=== PATIENT | female | born 1955 | race Two or more races ===

== ENCOUNTER 2025-08-09 00:11 | Inpatient (IN) | payer MEDICARE, BC ==
[~2025-08-09] VITALS: Ht 167.6 cm; Wt 81.8 kg
--- NOTE | 2025-08-09 00:26 | ECG ---
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
[2025-08-09 00:49] LABS: Hematocrit 45.8 % (36.0-46.0); Hemoglobin 15.8 g/dL (12.2-16.2); Mean Corpuscular Hemoglobin 29.7 pg (28.0-32.0); Mean Corpuscular Volume 86.1 fL (80.0-100.0); Nucleated Red Blood Cells % 0.1 %
--- NOTE | 2025-08-09 00:53 | DVH ---
CHEST RADIOGRAPH Indication: Palpitations Technique: 1 view Comparison: None FINDINGS: Lines and Tubes: External leads. Lungs/Pleura: No focal consolidation, pleural effusion or pneumothorax. Cardiomediastinum: Unremarkable. Other: No acute osseous abnormality. IMPRESSION: 1. No acute cardiopulmonary abnormality.
[2025-08-09 01:04] LABS: Alanine Aminotransferase 39 U/L (7-40); Albumin 4.6 g/dL (3.2-4.8); Alkaline Phosphatase 106 U/L (46-116); Anion Gap 16 (5-15); BUN/Creatinine Ratio 13.3 (10.0-20.0); Blood Urea Nitrogen 12 mg/dL (9-23); Carbon Dioxide 22 mmol/L (20-31); Magnesium 2.5 mg/dL (1.6-2.6); Potassium 3.9 mmol/L (3.5-5.1); Total Protein 7.6 g/dL (5.7-8.2)
[2025-08-09 01:05] LABS: Bilirubin, Total 0.4 mg/dL (0.2-1.0)
[2025-08-09] MEDS: SODIUM CHLORIDE 0.9% 1,000 ML IV ONE (01:05)
[2025-08-09 01:06] LABS: Calcium 10.4 mg/dL (8.7-10.4); Chloride 107 mmol/L (98-107); Glucose 145 mg/dL (74-106); Sodium 145 mmol/L (136-145)
[2025-08-09] MEDS: dilTIAZem 25 MG/5 ML VIAL IV ONE (01:06)
--- NOTE | 2025-08-09 01:08 | ED.PDOC ---
HPI Comments 70-year-old female with dyslipidemia presented to the ER with a chief complaint of palpitations and chest pain for the past 2 hours, patient went to bed and started to experience palpitations, her heart was racing, she also felt pressure type chest pain, left-sided, nonradiating, nonexertional, she took a baby aspirin, associated with shortness of breaths, no nausea or diaphoresis. Patient denies any fevers/chills/abdominal or urinary symptoms. She says that she had an echocardiogram 2 years back which was normal. Past medical history: Dyslipidemia Home medications: Atorvastatin Patient seen and examined. EKG completed, shows AFib with RVR, IV diltiazem push given. Rate controlled with diltiazem push, still regular. Attestation note: Dr. Maravilla: I was the supervising attending for this ED encounter. Please see the resident's notes. I was available for questions and consultations. MDM: MDM: patient presented with the above HPI.--palpitation----workup was ini tiated. patient was found with the above mentioned diagnosis. the following medications were ordered: please refer to order lists of meds and tests obtained by myself Dr. Maravilla. Patient ED course and VS have been stabilized. Patient has been reassessed in the ED and remained in a stable condition. Pertinent incidental findings were discussed with the patient and/or family. Patient/family voices understanding and is agreeable with plan. Patient has been observed in the ED adequate length of time to insure improvement/stability. Escalation of care considered: Consideration of escalation to observation or admission Patient was given diltiazem bolus which led to rate control of atrial fibrillation. Patient was ADMITTED to the medicine team for further evaluation and treatment of their presentation. All the reports of any imaging studies that were ordered by myself were reviewed by myself. Chief Complaint: Palpitations Time Seen by MD: 00:15 Reviewed Notes: Nurses Notes, Allergies Allergies: Coded Allergies: Penicillins (Verified Allergy, Unknown, 08/09/25) Sulfa Antibiotics (Verified Allergy, Unknown, 08/09/25) Information Source: Patient Mode of Arrival: Ambulatory Past Medical History Past Medical History (Other): Dyslipidemia Constitutional: denies: chills, diaphoresis, fatigue, fever, malaise, sweats, weakness, others EENTM: denies: blurred vision, double vision, ear bleeding, ear discharge, ear drainage, ear pain, ear ringing, eye pain, eye redness, hearing loss, mouth pain, mouth swelling, nasal discharge, nose bleeding, nose congestion, nose pain, photophobia, tearing, throat pain, throat swelling, voice changes, others Respiratory: reports: SOB at rest Cardiovascular: reports: chest pain, lightheadedness, palpitations Gastrointestinal: denies: abdomen distended, abdominal pain, blood streaked bowels, constipated, diarrhea, dysphagia, difficulty swallowing, hematemesis, melena, nausea, poor appetite, poor fluid intake, rectal bleeding, rectal pain, vomiting, others Genitourinary: denies: abnormal vagina bleeding, burning, dyspareunia, dysuria, flank pain, frequency, hematuria, incontinence, pain, , vagina discharge, urgency, others Neurological: denies: dizziness, fainting, headache, left sided numbness, left sided weakness, numbness, paresthesia, pre-existing deficit, right sided numbness, right sided weakness, seizure, speech problems, tingling, tremors, weakness, others Musculoskeletal: denies: back pain, gout, joint pain, joint swelling, muscle pain, muscle stiffness, neck pain, others Integumetry: denies: bruises, change in color, change in hair/nails, dryness, laceration, lesions, lumps, rash, wounds, others Allergic/Immunocompromised: denies: Difficulty Healing, Frequent Infections, Hives, Itching, others Hematologic/Lymphatic: denies: anemia, blood clots, easy bleeding, easy bruising, swollen glands, others Endocrine: denies: excessive hunger, excessive sweating, excessive thirst, excessive urination, flushing, intolerance to cold, intolerance to heat, unexplained weight gain, unexplained weight loss, others Psychiatric: denies: anxiety, bipolar disorder, depression, hopeless, panic disorder, schizophrenia, sleepless, suicidal, others Physical Exam General Appearance: Mild Distress HEENT: NOT DONE Neck: NOT DONE Respiratory: No Accessory Muscle Use, No Respiratory Distress, Normal Breath Sounds Cardiovascular: Irregular, No Edema, Tachycardia Breast Exam: Deferred Gastrointestinal: Non Tender, Normal Bowel Sounds Genitalia: Deferred Pelvic: Deferred Rectal: Deferred Extremities: Non-tender, No pedal edema Neurologic: NOT DONE Cerebellar Function: NOT DONE Reflexes: NOT DONE Skin: Dry Lymphatic: NOT DONE EKG EKG : Comments Shows new onset AFib with RVR, heart rate 150s and irregular Was a procedure done? Was a procedure done?: No CP Differential Dx Differential Diagnosis: A-fib, A-Flutter, Angina, Anxiety / Panic Attack, Digoxin Toxicity, Electrolyte Disorder, Heart Failure, Hyperthyroidism, Hyperventilation, Hypoxia, MAT, CO, PAC's, Pacemaker Malfunction, PSVT, Pulmonary Embolus, PVC's, Renal Failure, Sinus Tachycardia, Torsades De Pointes, Ventricular Dysrhythmia, V-Fib, V-Tach, WPW Differential Diagnosis: CHF, HTN Essential X-Ray, Labs, Meds, VS Vital Signs Date Time Temp Pulse Resp B/P (MAP) Pulse Ox O2 Delivery O2 Flow Rate FiO2 08/09/25 02:00 98.0 81 18 159/83 (108) 97 98.0 08/09/25 01:18 74 08/09/25 00:39 Room Air* 0 21 08/09/25 00:39 98.0 146 15 149/85 (106) 97 98.0 08/09/25 00:25 154 08/09/25 00:21 136 08/09/25 00:17 97.5 117 20 138/105 97 97.5 Lab Test 08/09/25 01:30 08/09/25 00:27 Range/Units Phosphorus Level 2.8 2.4-5.1 mg/dL Troponin I High Sensitivity 14 9 </=34 ng/L C-Reactive Protein High Sensitivity 0.35 <1.0 mg/dL Triglycerides Level 133 < 150 mg/dL Cholesterol Level 166 < 200 mg/dL LDL Cholesterol 120 H < 100 mg/dL HDL Cholesterol 41 40-59 mg/dL Lipase 79 H 12-53 U/L Thyroid Stimulating Hormone (TSH) 3.72 0.55-4.78 uIU/mL White Blood Count 9.0 4.4-10.8 10^3/uL Red Blood Count 5.32 H 4.0-5.20 10^6/uL Hemoglobin 15.8 12.2-16.2 g/dL Hematocrit 45.8 36.0-46.0 % Mean Corpuscular Volume 86.1 80.0-100.0 fL Mean Corpuscular Hemoglobin 29.7 28.0-32.0 pg Mean Corpuscular Hemoglobin Concent 34.5 32.0-36.0 g/dL Red Cell Distribution Width 13.3 11.8-14.3 % Platelet Count 222 140-450 10^3/uL Mean Platelet Volume 8.6 6.9-10.8 fL Neutrophils (%) (Auto) 68.8 37.0-80.0 % Lymphocytes (%) (Auto) 18.2 10.0-50.0 % Monocytes (%) (Auto) 10.4 0.0-12.0 % Eosinophils (%) (Auto) 2.2 0.0-7.0 % Basophils (%) (Auto) 0.4 0.0-2.0 % Neutrophils # (Auto) 6.2 1.6-8.6 10 ^3/uL Lymphocytes # (Auto) 1.6 0.4-5.4 10 ^3/uL Monocytes # (Auto) 0.9 0-1.3 10 ^3/uL Eosinophils # (Auto) 0.2 0-0.8 10 ^3/uL Basophils # (Auto) 0 0-0.2 10 ^3/uL Nucleated Red Blood Cells 0.1 % Prothrombin Time 10.2 9.3-11.8 sec Prothrombin Time INR 0.96 0.9-1.15 Activated Partial Thromboplast Time 25.6 24.5-34.5 SEC D-Dimer, Quantitative 0.33 0.0-0.49 mg/L FEU Sodium Level 145 136-145 mmol/L Potassium Level 3.9 3.5-5.1 mmol/L Chloride Level 107 98-107 mmol/L Carbon Dioxide Level 22 20-31 mmol/L Anion Gap 16 H 5-15 Blood Urea Nitrogen 12 9-23 mg/dL Creatinine 0.90 0.550-1.02 mg/dL Glomerular Filtration Rate Calc 70 >90 mL/min BUN/Creatinine Ratio 13.3 10.0-20.0 Serum Glucose 145 H 74-106 mg/dL Hemoglobin A1c 6.1 H <5.7 % A1C Calcium Level 10.4 8.7-10.4 mg/dL Magnesium Level 2.5 1.6-2.6 mg/dL Total Bilirubin 0.4 0.2-1.0 mg/dL Aspartate Amino Transferase (AST) 28 13-40 U/L Alanine Aminotransferase (ALT) 39 7-40 U/L Alkaline Phosphatase 106 46-116 U/L B-Type Natriuretic Peptide 64.98 0-100 pg/mL Total Protein 7.6 5.7-8.2 g/dL Albumin 4.6 3.2-4.8 g/dL Vitamin B12 Level 849 211-911 pg/mL Vitamin D 25-Hydroxy Pending Current Medications Medications (Trade) Dose Ordered Sig/Sharron Route Start Time Stop Time Status Last Admin Sodium Chloride 1,000 ml @ 1,000 mls/hr Q1H ONCE IV 08/09/25 00:45 08/09/25 01:44 DC 08/09/25 01:05 Diltiazem HCl (Cardizem Injection) 20 mg ONCE ONCE IV 08/09/25 00:45 08/09/25 00:46 DC 08/09/25 01:06 X-Ray, Labs, Meds, VS Comment Chest x-ray shows No acute cardiopulmonary abnormality. CBC unremarkable CMP unremarkable Troponin WNL BNP 64 Images Reviewed?: Images reviewed and evaluated by me Time of 1ST Reevaluation: 01:00 Reevaluation 1ST: Improved Consultation: PCP, Cardiology Patient Education/Counseling: Diagnosis, Treatment Family Education/Counseling: Diagnosis, Treatment SEPSIS Sepsis Screen Date sepsis recognized/suspect: Aug 09, 2025 Time Sepsis recognized/suspect: 0019 Recent Procedure: No On Antibiotic Therapy: No Respiratory Rate >20: No Heart Rate >90: No Temp<36 C (96.8 F) or >38.3 C: No SBP <90 or MAP <65 mmHG: No New Acute Mental Status Change: No Is the patient on CPAP, BIPAP,: No Physician Orders Chest Xray 1 View (08/09/25 00:21) Vital Signs Date Time Temp Pulse Resp B/P (MAP) Pulse Ox O2 Delivery O2 Flow Rate FiO2 08/09/25 02:00 98.0 81 18 159/83 (108) 97 98.0 08/09/25 01:18 74 08/09/25 00:39 Room Air* 0 21 08/09/25 00:39 98.0 146 15 149/85 (106) 97 98.0 08/09/25 00:25 154 08/09/25 00:21 136 08/09/25 00:17 97.5 117 20 138/105 97 97.5 Laboratory Tests Test 08/09/25 00:27 White Blood Count 9.0 10^3/uL (4.4-10.8) Medications Medications Dose Ordered Sig/Sharron Route Start Time Stop Time Status Last Admin Dose Admin Diltiazem HCl 20 mg ONCE ONCE IV 08/09/25 00:45 08/09/25 00:46 DC 08/09/25 01:06 Sodium Chloride 1,000 ml @ 1,000 mls/hr Q1H ONCE IV 08/09/25 00:45 08/09/25 01:44 DC 08/09/25 01:05 Departure 1 Departure Time of Disposition: 01:16 Impression: Primary Impression: Atrial fibrillation with RVR Disposition: ADMITTED INPATIENT Admit to: Tele Condition: Guarded Discharged With: Self Critical Care Note Critical Care Time?: Yes (45 min-critical care time only) Stability Stability form required: No Heart Score Heart Score: Heart Score Response (Comments) Value History Moderate Suspicious 1 EKG Normal 0 Age >65 2 Risk Factors 1 or 2 risk factors 1 Troponin Normal limit 0 Total 4 DAVID MCKEON RESIDENT Aug 09, 2025 01:08 EN MARAVILLA DO Aug 09, 2025 01:16
--- NOTE | 2025-08-09 01:53 | DVHHPRES ---
History of Present Illness Resident Creating Document: NANO PEPPER RESIDENT History of Present Illness This is a 70-year-old female with past medical history of hyperlipidemia, hypertension, presented to the ER with chief complain of chest pain, irregular pulse. Patient reported she was relaxed when she suddenly started feeling irregular pulse in her neck and feeling of her heart racing. She reports chest and pain, which is described as pressure-like, 3/10, associated with palpitation and shortness of breaths. She reports recent travel from [facility], visiting son. Denies history of fever, chills, dizziness, nausea. PMHx: Hyperlipidemia, hypertension PSHx: No surgical history Family history: Stroke in mother Social history: Occasional alcohol use. Denies smoking, drug use. Lives in home alone, full code, next to kin is son Home medication: Atorvastatin, newly prescribed lisinopril Allergic history: Penicillin, sulfa drugs Patient was examined at bedside today. Patient received diltiazem in ER and is now rate controlled, spontaneously reverted to sinus rhythm. Vitals show tachycardia, patient is admitted for further evaluation and management Review of Systems Review of Systems ROS: Constitutional: Denies weight loss, fever and chills. HEENT: Denies changes in vision and hearing. Respiratory: Shortness of breaths Cardiovascular: Chest pain, palpitation, GI: Denies abdominal pain, nausea, vomiting and diarrhea. : Denies dysuria and urinary frequency. Musculoskeletal: Denies myalgias and joint pain Skin: Denies rash and pruritus. Neurological: Denies dizziness, headache, vision or hearing problems Allergies: Coded Allergies: Penicillins (Verified Allergy, Unknown, 08/09/25) Sulfa Antibiotics (Verified Allergy, Unknown, 08/09/25) Exam Vital Signs Vital Signs Date Time Temp Pulse Resp B/P (MAP) Pulse Ox O2 Delivery O2 Flow Rate FiO2 08/09/25 01:18 74 08/09/25 00:39 Room Air* 0 21 08/09/25 00:39 98.0 15 149/85 (106) 97 98.0 Exam General: Patient alert and oriented in person, place and time. Patient following commands. HEENT: Normocephalic, atraumatic, moist mucous membranes Respiratory/pulmonary: Clear lungs bilaterally, vesicular murmurs present in almost all lung jacobs, no associated crackles or wheezes. Cardiovascular: Irregularly irregular heart sounds Abdomen: Abdomen nondistended, there is no pain to palpation in any of the abdominal quadrants, no palpable masses. Extremities: There is no peripheral edema present at the lower extremities. Peripheral Pulses: 3+ Radial (R). 3+ Radial (L). 3+ Dorsalis pedis (R). 3+ Dorsalis pedis(L) Skin: No rashes or pruritus, there is no sacral edema present at this time. Neurological: Intact cranial nerves with no focal neurologic deficits Labs/Xrays Labs Test 08/09/25 01:30 08/09/25 00:27 Range/Units White Blood Count 9.0 4.4-10.8 10^3/uL Red Blood Count 5.32 H 4.0-5.20 10^6/uL Hemoglobin 15.8 12.2-16.2 g/dL Hematocrit 45.8 36.0-46.0 % Mean Corpuscular Volume 86.1 80.0-100.0 fL Mean Corpuscular Hemoglobin 29.7 28.0-32.0 pg Mean Corpuscular Hemoglobin Concent 34.5 32.0-36.0 g/dL Red Cell Distribution Width 13.3 11.8-14.3 % Platelet Count 222 140-450 10^3/uL Mean Platelet Volume 8.6 6.9-10.8 fL Neutrophils (%) (Auto) 68.8 37.0-80.0 % Lymphocytes (%) (Auto) 18.2 10.0-50.0 % Monocytes (%) (Auto) 10.4 0.0-12.0 % Eosinophils (%) (Auto) 2.2 0.0-7.0 % Basophils (%) (Auto) 0.4 0.0-2.0 % Neutrophils # (Auto) 6.2 1.6-8.6 10 ^3/uL Lymphocytes # (Auto) 1.6 0.4-5.4 10 ^3/uL Monocytes # (Auto) 0.9 0-1.3 10 ^3/uL Eosinophils # (Auto) 0.2 0-0.8 10 ^3/uL Basophils # (Auto) 0 0-0.2 10 ^3/uL Nucleated Red Blood Cells 0.1 % Sodium Level 145 136-145 mmol/L Potassium Level 3.9 3.5-5.1 mmol/L Chloride Level 107 98-107 mmol/L Carbon Dioxide Level 22 20-31 mmol/L Anion Gap 16 H 5-15 Blood Urea Nitrogen 12 9-23 mg/dL Creatinine 0.90 0.550-1.02 mg/dL Glomerular Filtration Rate Calc 70 >90 mL/min BUN/Creatinine Ratio 13.3 10.0-20.0 Serum Glucose 145 H 74-106 mg/dL Calcium Level 10.4 8.7-10.4 mg/dL Magnesium Level 2.5 1.6-2.6 mg/dL Total Bilirubin 0.4 0.2-1.0 mg/dL Aspartate Amino Transferase (AST) 28 13-40 U/L Alanine Aminotransferase (ALT) 39 7-40 U/L Alkaline Phosphatase 106 46-116 U/L B-Type Natriuretic Peptide 64.98 0-100 pg/mL Total Protein 7.6 5.7-8.2 g/dL Albumin 4.6 3.2-4.8 g/dL SEPSIS Sepsis Screen Date sepsis recognized/suspect: Aug 09, 2025 Time Sepsis recognized/suspect: 38 Recent Procedure: No On Antibiotic Therapy: No Respiratory Rate >20: No Heart Rate >90: Yes Temp<36 C (96.8 F) or >38.3 C: No SBP <90 or MAP <65 mmHG: No New Acute Mental Status Change: No Is the patient on CPAP, BIPAP,: No Physician Orders Chest Xray 1 View (08/09/25 00:21) Troponin-I Hs (08/09/25 00:32) Troponin-I Hs (08/09/25 03:32) Vital Signs Date Time Temp Pulse Resp B/P (MAP) Pulse Ox O2 Delivery O2 Flow Rate FiO2 08/09/25 01:18 74 08/09/25 00:39 Room Air* 0 21 08/09/25 00:39 98.0 146 15 149/85 (106) 97 98.0 08/09/25 00:25 154 08/09/25 00:21 136 08/09/25 00:17 97.5 117 20 138/105 97 97.5 Laboratory Tests Test 08/09/25 00:27 White Blood Count 9.0 10^3/uL (4.4-10.8) Medications Medications Dose Ordered Sig/Sharron Route Start Time Stop Time Status Last Admin Dose Admin Diltiazem HCl 20 mg ONCE ONCE IV 08/09/25 00:45 08/09/25 00:46 DC 08/09/25 01:06 20 MG Sodium Chloride 1,000 ml @ 1,000 mls/hr Q1H ONCE IV 08/09/25 00:45 08/09/25 01:44 DC 08/09/25 01:05 1,000 MLS/HR Assessment/Plan Assessment/Plan New onset Atrial fibrillation with RVR CHADS-VASc 3, HAS BLED 2 Rate controlled after a dose of diltiazem Indicated Metoprolol maintanance for rate control Patient alternates between sinus rhythm and atrial fibrillation. Patient admitted to telemetry Started on Lovenox therapeutic dose Echocardiogram ordered D-dimer ordered Hypertension Lisinopril 5 mg daily Hyperlipidemia Atorvastatin 10 mg daily DIET: Cardiac DVT PROPHYLAXIS: Lovenox GI PROPHYLAXIS: Protonix CODE STATUS: Goals of care discussed with patient at bedside for more than 35 minutes. Full code DISPOSITION: Telemetry Patient's status and plan discussed with the patient. Case discussed with Dr. Foley Plan discussed with: Patient, Son, Other (Nurses) Date of Service: Aug 09, 2025 Billing Provider: WILLIAN FOLEY MD Common Visit Codes: [id number] INP/OBS CARE (HIGH) Secondary Visit Codes: [id number] CARE PLAN 30 MINUTES NANO PEPPER RESIDENT Aug 09, 2025 01:53 GEORGIA KAPLAN RESIDENT Aug 09, 2025 06:22
[2025-08-09] MEDS ORDERED: MORPHINE SULFATE INJ 2 MG/ml SYRG IV PRN (02:30)
[2025-08-09] MEDS ORDERED: ONDANSETRON HCL 4 MG/2 ML VIAL IV PRN (02:30)
[2025-08-09 03:11] LABS: INR 0.96 (0.9-1.15); Partial Thromboplastin Time 25.6 SEC (24.5-34.5); Prothrombin Time 10.2 sec (9.3-11.8)
[2025-08-09] MEDS: ATORVASTATIN 20 MG TAB PO ONE (03:39)
[2025-08-09] MEDS: LISINOPRIL 5 MG TAB PO ONE (03:40)
[2025-08-09] MEDS: ENOXAPARIN SOD 100 MG/1 ML SYRINGE SC SCH (03:40)
[2025-08-09 04:13] LABS: Triglycerides 133.0 mg/dL (< 150)
[2025-08-09 04:15] LABS: Cholesterol 166.0 mg/dL (< 200); HDL Cholesterol 41.0 mg/dL (40-59)
[2025-08-09 04:42] LABS: Lipase 79.0 U/L (12-53)
[2025-08-09 04:50] LABS: Urine Protein, UAD Negative (Negative)
[2025-08-09 05:12] LABS: Amphetamine Screen, Urine Neg (NEGATIVE); Barbiturate Scree,Urine Neg (NEGATIVE); Benzodiazephine Screen, Urine Neg (NEGATIVE); Cannabinoid Screen, Urine Neg (NEGATIVE); Cocaine Screen, Urine Neg (NEGATIVE); Opiate Scree,Urine Neg (NEGATIVE); Phencyclidine Screen, Urine Neg (NEGATIVE)
[2025-08-09] MEDS: PANTOPRAZOLE 40 MG TAB PO SCH (05:42)
[2025-08-09] MEDS ORDERED: DEXTROSE (50%) 50ML SYRG IV PRN (07:45)
[2025-08-09 08:00] VITALS: PULSE 74; RESP 17; O2SAT 96
[2025-08-09 08:32] LABS: Hematocrit 41.7 % (36.0-46.0); Hemoglobin 14.5 g/dL (12.2-16.2); Mean Corpuscular Hemoglobin 30.1 pg (28.0-32.0); Mean Corpuscular Volume 86.2 fL (80.0-100.0); Nucleated Red Blood Cells % 0.1 %
[2025-08-09 08:42] LABS: Chloride 106 mmol/L (98-107); Potassium 4.0 mmol/L (3.5-5.1); Sodium 144 mmol/L (136-145)
[2025-08-09 08:43] LABS: Anion Gap 11 (5-15); Calcium 9.1 mg/dL (8.7-10.4); Carbon Dioxide 27 mmol/L (20-31)
[2025-08-09 08:48] LABS: BUN/Creatinine Ratio 12.3 (10.0-20.0); Blood Urea Nitrogen 10 mg/dL (9-23)
[2025-08-09 08:51] LABS: Glucose 125 mg/dL (74-106)
--- NOTE | 2025-08-09 08:58 | DVHPNRES ---
Progress Note Date Seen: Aug 09, 2025 Resident Creating Document: JOAN BHAT RESIDENT Medical Necessity Reason Pt with a Central, PICC or Fol: No Subjective Review of Systems This is a 70-year-old female with past medical history of hyperlipidemia, hypertension, presented to the ER with chief complain palpitation. As per patient she checked her carotid pulse and found out in her Apple watch as she has atrial fibrillation, patient was also feeling pressure-like chest pain especially in the back of the neck. Patient also reported her blood pressure was elevated in 190s at home. Patient denied any fever, cough, recent diarrhea. Initial EKG revealed atrial fibrillation with rapid ventricular rate. Patient was given diltiazem at the ER and EKG reverted to sinus rhythm. Hemoglobin A1c 6.1, LDL 120. UDS negative. D-dimer negative. Chest x-ray negative PMHx: Hyperlipidemia, hypertension PSHx: No surgical history Family history: Stroke in mother Social history: Occasional alcohol use. Denies smoking, drug use. Lives in home alone, full code, next to kin is son Home medication: Atorvastatin, newly prescribed lisinopril Allergic history: Penicillin, sulfa drugs Patient was seen today at bedside, labs and chart reviewed. Patient reported feeling better today, no acute palpitation or chest pain. EKG sinus rhythm Objective vital signs Vital Sign Date Time Temp Pulse Resp B/P (MAP) Pulse Ox O2 Delivery O2 Flow Rate FiO2 08/09/25 06:00 98.0 78 16 142/73 (96) 96 98.0 08/09/25 00:39 Room Air* 0 21 medications Current Medications Medications Dose Ordered Sig/Sharron Route Start Time Stop Time Status Last Admin Dose Admin Ondansetron HCl 4 mg Q4HP PRN IV 08/09/25 02:30 Morphine Sulfate 2 mg Q4HPRN PRN IV 08/09/25 02:30 Atorvastatin Calcium 10 mg HS PO 08/09/25 22:00 Lisinopril 10 mg DAILY PO 08/09/25 10:00 Enoxaparin Sodium 80 mg Q12HR SC 08/09/25 02:30 08/09/25 03:40 80 MG Pantoprazole Sodium 40 mg DAILY@0600 PO 08/09/25 06:00 08/09/25 05:42 40 MG Metoprolol Tartrate 12.5 mg BID PO 08/09/25 10:00 Diagnostic Test (Pha) 1 strip ACHS 08/09/25 11:30 UNV Insulin Human Regular ACHS SC 08/09/25 11:30 UNV Dextrose 50 ml UD PRN IV 08/09/25 07:45 UNV Examination General examination- awake, alert, oriented HEENT- PEERLA, no acute nasal discharge Cardiovascular- S1-S2 audible, rate and rhythm regular, no murmur Respiratory- CTAB, no wheeze or rhonchi Gastrointestinal-nontender, bowel sound+. Nondistended Musculoskeletal-no acute joint swelling or tenderness or redness Lower extremity- no leg edema Neurological- cranial nerves intact, no acute dysarthria or dysphagia Psychiatry- denies depression or SI or HI Skin- no acute rash or purpura laboratory and microbiology Laboratory Tests 08/09/25 08:04 Test 08/09/25 08:04 Range/Units Serum Glucose 125 H 74-106 mg/dL Problem List/Assessment/Plan Problem List/Assessment/Plan Assessment and plan #New onset Atrial fibrillation with RVR CHADS-VASc 3, HAS BLED 2 Rate was controlled after a dose of diltiazem -patient now in sinus rhythm -pending cardiology consult for rhythm control possibly -pending echo 2D -metoprolol 25 mg p.o. b.i.d. -status post cardiology consult, cardiology recommendation reviewed and appreciated. #Hypertension Monitor blood pressure #Hyperlipidemia Atorvastatin 10 mg chantal # prediabetes -hemoglobin A1c 6.1 -carbohydrate controlled diet Goals of care, Code status full code ; discussed with >15 minutes PUD prophylaxis: Pantoprazole DVT prophylaxis: Lovenox Plan discussed with Dr. Ahn , nursing staff, Total time spent on patient evaluation, chart review, assessment and plan, discussion discussion >35 minutes Plan discussed with: Patient, Son, Other (RN) My Orders My Orders Orders - JOAN BHAT Procedure Category Date Status Time Glucose Blood PHA 08/09/25 Logged (Accu-Chek Comfort 11:30 Insulin R (Human) PHA 08/09/25 Logged (Insulin R) 11:30 Dextrose 50% Syringe PHA 08/09/25 Logged 07:45 Date of Service: Aug 09, 2025 Billing Provider: WILLIAN AHN MD Common Visit Codes: [id number] INP/OBS CARE(HIGH) JOAN BHAT Aug 09, 2025 08:58 WILLIAN AHN MD Aug 09, 2025 20:08
[2025-08-09] MEDS: METOPROLOL TARTRATE 25 MG TAB PO SCH ×2 (10:00→21:25)
[2025-08-09] MEDS: LISINOPRIL 5 MG TAB PO SCH (10:00)
[2025-08-09] MEDS: ACCU-CHEK COMFORT CURVE STRIP VI SCH (11:30)
[2025-08-09] MEDS: InsuLIN REG 1unit/0.01ml Soln (100units/ml) SC SCH (11:30)
--- NOTE | 2025-08-09 13:04 | DVHINCON2 ---
Date Seen: Aug 09, 2025 Referring Physician MD Og Reason for Consultation Atrial fibrillation, new onset History of Present Illness This is a 70-year-old female patient who presents to the emergency room with chief complaint of palpitations. Associated symptoms include shortness of nasreen th. The patient reports that palpitations began approximately 90 minutes prior to emergency room arrival. She reports that her Apple watch notified her that she was in atrial fibrillation with rapid ventricular response. She came to the emergency room for further evaluation. Initial twelve lead electrocardiogram done in the emergency room revealed atrial fibrillation with rapid ventricular rate. The patient was given 20 mg IV diltiazem one time by emergency room staff. At the time of assessment, the patient is now in a normal sinus rhythm. Significant past medical history includes hypertension, dyslipidemia, and prediabetes. The patient reports previous symptoms of palpitations in which she underwent a full cardiac workup in 2018 including an echocardiogram, stress test, and Holter monitor. She reports that the fulfillment mail clerk did not find anything concerning and she has not followed up with a fulfillment mail clerk since then. Past Medical History Past medical history reviewed. No other significant than mentioned above. Past Surgical History Denies any previous surgeries Family History Family history reviewed. Social History Denies the use of tobacco, alcohol or illicit drugs. Allergies: Coded Allergies: Penicillins (Verified Allergy, Unknown, 08/09/25) Sulfa Antibiotics (Verified Allergy, Unknown, 08/09/25) Home Meds Home medications reviewed. Current Medications Current Medications Medications (Trade) Dose Ordered Sig/Sharron Route PRN Reason Start Time Stop Time Status Last Admin Ondansetron HCl (Zofran) 4 mg Q4HP PRN IV NAUSEA / VOMITING 08/09/25 02:30 Morphine Sulfate 2 mg Q4HPRN PRN IV SEVERE PAIN (7-10 PAIN SCALE) 08/09/25 02:30 Atorvastatin Calcium (Lipitor) 10 mg HS PO 08/09/25 22:00 Lisinopril (Zestril Tablet) 10 mg DAILY PO 08/09/25 10:00 08/09/25 12:21 DC Enoxaparin Sodium (Lovenox) 80 mg Q12HR SC 08/09/25 02:30 08/09/25 03:40 Pantoprazole Sodium (Protonix Tablet) 40 mg DAILY@0600 PO 08/09/25 06:00 08/09/25 05:42 Metoprolol Tartrate (Lopressor Tablet) 12.5 mg BID PO 08/09/25 10:00 08/09/25 12:21 DC Diagnostic Test (Pha) (Accu-Chek Comfort Curve T) 1 strip ACHS 08/09/25 11:30 08/09/25 12:21 DC Insulin Human Regular (InsuLIN R) ACHS SC 08/09/25 11:30 08/09/25 12:49 DC Dextrose 50 ml UD PRN IV Blood Sugar LESS THAN 60 08/09/25 07:45 08/09/25 12:49 DC Review of Systems Constitutional: No symptom reported Ears, Nose, & Throat: No symptom reported Eyes: No symptom reported Neurological: No symptoms reported Pulmonary/Respiratory: Shortness of breath Cardiovascular: Palpitations Gastrointestinal: No symptom reported Genitourinary: No symptom reported Musculoskeletal: No symptom reported Skin: No symptom reported Psychiatric: No symptom reported Endocrine: No symptom reported Hematologic/Lymphatic: No symptom reported Vital Signs Vital Signs Date Time Temp Pulse Resp B/P (MAP) Pulse Ox O2 Delivery O2 Flow Rate FiO2 08/09/25 10:00 74 131/63 08/09/25 08:00 98.4 17 96 98.4 08/09/25 08:00 Room Air* 0 21 Physical Exam General Appearance: Cooperative. Well-developed. Well-nourished. No acute distress. Pulmonary/Respiratory: Clear, bilateral breaths sounds. Cardiovascular/Chest: Regular rate and rhythm. Peripheral Pulses: 2+ Radial (R). 2+ Radial (L). 2+ Pedal (R). 2+ Pedal (L) Abdominal Exam: Normal bowel sounds. Ankle Exam: Negative ankle edema Lower extremities: Negative lower extremity edema Neuro/Mental Status: A/OX4, coherent. Thoughts/Psych: Normal thought pattern. Appropriate mood and affect. Good judgment and insight. Appearance: No acute distress. Skin Exam: Normal inspection. Normal color. Warm and dry. Labs/Diagnostic Data Labs Test 08/09/25 08:04 08/09/25 04:33 08/09/25 01:30 08/09/25 00:27 Range/Units White Blood Count 7.3 4.4-10.8 10^3/uL Red Blood Count 4.84 4.0-5.20 10^6/uL Hemoglobin 14.5 12.2-16.2 g/dL Hematocrit 41.7 36.0-46.0 % Mean Corpuscular Volume 86.2 80.0-100.0 fL Mean Corpuscular Hemoglobin 30.1 28.0-32.0 pg Mean Corpuscular Hemoglobin Concent 34.9 32.0-36.0 g/dL Red Cell Distribution Width 13.3 11.8-14.3 % Platelet Count 203 140-450 10^3/uL Mean Platelet Volume 8.8 6.9-10.8 fL Neutrophils (%) (Auto) 71.2 37.0-80.0 % Lymphocytes (%) (Auto) 16.2 10.0-50.0 % Monocytes (%) (Auto) 10.7 0.0-12.0 % Eosinophils (%) (Auto) 1.4 0.0-7.0 % Basophils (%) (Auto) 0.5 0.0-2.0 % Neutrophils # (Auto) 5.2 1.6-8.6 10 ^3/uL Lymphocytes # (Auto) 1.2 0.4-5.4 10 ^3/uL Monocytes # (Auto) 0.8 0-1.3 10 ^3/uL Eosinophils # (Auto) 0.1 0-0.8 10 ^3/uL Basophils # (Auto) 0 0-0.2 10 ^3/uL Nucleated Red Blood Cells 0.1 % Sodium Level 144 136-145 mmol/L Potassium Level 4.0 3.5-5.1 mmol/L Chloride Level 106 98-107 mmol/L Carbon Dioxide Level 27 20-31 mmol/L Anion Gap 11 5-15 Blood Urea Nitrogen 10 9-23 mg/dL Creatinine 0.81 0.550-1.02 mg/dL Glomerular Filtration Rate Calc 79 >90 mL/min BUN/Creatinine Ratio 12.3 10.0-20.0 Serum Glucose 125 H 74-106 mg/dL Calcium Level 9.1 8.7-10.4 mg/dL Urine Color Colorless Yellow Urine Clarity Clear Clear Urine pH 7.0 5.0-9.0 Urine Specific [place] 1.011 1.001-1.035 Urine Protein Negative Negative Urine Ketones Negative Negative Urine Blood Negative Negative /uL Urine Nitrite Negative Negative Urine Bilirubin Negative Negative Urine Urobilinogen Normal Negative mg/dL Urine Leukocyte Esterase Negative Negative /uL Urine RBC None seen 0 - 4 /hpf Urine Microscopic WBC < 1 0-5 /HPF Urine Squamous Epithelial Cells None seen <5 /hpf Urine Bacteria None seen None Seen /hpf Urine Glucose Normal Normal mg/dL Urine Opiates Screen Neg NEGATIVE Urine Fentanyl Screen Neg NEGATIVE Urine Barbiturates Screen Neg NEGATIVE Urine Phencyclidine Screen Neg NEGATIVE Urine Amphetamines Screen Neg NEGATIVE Urine Benzodiazepines Screen Neg NEGATIVE Urine Cocaine Screen Neg NEGATIVE Urine Cannabinoids Screen Neg NEGATIVE Phosphorus Level 2.8 2.4-5.1 mg/dL Troponin I High Sensitivity 14 </=34 ng/L C-Reactive Protein High Sensitivity 0.35 <1.0 mg/dL Triglycerides Level 133 < 150 mg/dL Cholesterol Level 166 < 200 mg/dL LDL Cholesterol 120 H < 100 mg/dL HDL Cholesterol 41 40-59 mg/dL Lipase 79 H 12-53 U/L Thyroid Stimulating Hormone (TSH) 3.72 0.55-4.78 uIU/mL Prothrombin Time 10.2 9.3-11.8 sec Prothrombin Time INR 0.96 0.9-1.15 Activated Partial Thromboplast Time 25.6 24.5-34.5 SEC D-Dimer, Quantitative 0.33 0.0-0.49 mg/L FEU Hemoglobin A1c 6.1 H <5.7 % A1C Magnesium Level 2.5 1.6-2.6 mg/dL Total Bilirubin 0.4 0.2-1.0 mg/dL Aspartate Amino Transferase (AST) 28 13-40 U/L Alanine Aminotransferase (ALT) 39 7-40 U/L Alkaline Phosphatase 106 46-116 U/L B-Type Natriuretic Peptide 64.98 0-100 pg/mL Total Protein 7.6 5.7-8.2 g/dL Albumin 4.6 3.2-4.8 g/dL Vitamin B12 Level 849 211-911 pg/mL Vitamin D 25-Hydroxy 49.7 30.0-100 ng/mL Assessment Atrial fibrillation with rapid ventricular response, new onset, now normal sinus rhythm Rule out structural heart disease Hypertension Dyslipidemia Prediabetes Plan/Recommendation We will continue with the following plan/recommendations (Dr. Baeza): * Transthoracic echocardiogram to evaluate cardiac function * [id number] VASc score: 3 points, HAS-BLED: 1 point * Initiate therapeutic Lovenox, transition to DOAC prior to discharge * Beta-kailash for rate control * Can consider antiarrhythmic----pending transthoracic echocardiogram * Monitor and replete electrolytes as needed, keep potassium greater than four and magnesium greater than two * Close cardiac surveillance Thank you for allowing us to care for this patient. Please call with any questions or concerns. Critical care time spent: 44 minutes This medical document was created using an electronic medical record system with voice recognition software and computerized dictation system. Although this document has been carefully reviewed, there might still be some phonetic and typ ographical errors. Occasional wrong-word or ``sound-alike substitutions may have occurred due to the inherent limitations of voice recognition software. These areas are purely typographical due to imperfections of the software programs and do not reflect any compromise in the patient's medical care. Please read the chart carefully and recognize, using context, where these subs titutions have occurred. Plan discussed with: Patient NYHA Physical activity limitations: NA Date of Service: Aug 09, 2025 Billing Provider: ELOISA GARCIA Cardiology Common Codes: 23426-QOEVLPB INP/OBS CARE (High) Cardiology Consultation Codes: 33271-[id number] CONSULT <45MIN ELOISA GARCIA Aug 09, 2025 13:04
[2025-08-09 15:00] VITALS: BP 153/87; PULSE 68; RESP 23; TEMP 97.1; O2SAT 97
[2025-08-09 16:53] VITALS: BP 144/79; PULSE 67; RESP 22; TEMP 97.7; O2SAT 97
[2025-08-09] MEDS ORDERED: LISI-275 PO (17:02)
[2025-08-09] MEDS ORDERED: ATOR10TA52 PO (17:02)
[2025-08-09 20:00] VITALS: PULSE 77; RESP 16; O2SAT 95
[2025-08-09 21:00] VITALS: BP 132/75; PULSE 77; RESP 16; TEMP 98.4; O2SAT 95
[2025-08-09] MEDS: ATORVASTATIN 20 MG TAB PO SCH (21:25)
[2025-08-10] VITALS (7 sets, daily range): BP systolic 135–156; BP diastolic 83–98; PULSE 62–80; RESP 16–18; TEMP 36.5; O2SAT 95–98
[2025-08-10 05:39] LABS: Chloride 105 mmol/L (98-107); Potassium 4.2 mmol/L (3.5-5.1); Sodium 142 mmol/L (136-145)
[2025-08-10 05:40] LABS: Calcium 8.9 mg/dL (8.7-10.4)
[2025-08-10 05:45] LABS: BUN/Creatinine Ratio 13.3 (10.0-20.0); Blood Urea Nitrogen 10 mg/dL (9-23); Magnesium 2.2 mg/dL (1.6-2.6)
[2025-08-10 05:51] LABS: Glucose 113 mg/dL (74-106)
[2025-08-10 05:54] LABS: Anion Gap 10 (5-15); Carbon Dioxide 27 mmol/L (20-31)
--- NOTE | 2025-08-10 16:15 | DVHDSRES ---
Discharge Summary Date of Admission Resident Creating Document: JOAN BHAT RESIDENT Aug 09, 2025 at 02:29 Date of Discharge: Aug 10, 2025 Admitting Diagnosis Atrial fibrillation with rapid ventricular rate Labs/Diagnostic Data: Laboratory Results Test 08/10/25 05:13 08/09/25 08:04 08/09/25 04:33 08/09/25 01:30 Sodium Level 142 mmol/L (136-145) Potassium Level 4.2 mmol/L (3.5-5.1) Chloride Level 105 mmol/L (98-107) Carbon Dioxide Level 27 mmol/L (20-31) Anion Gap 10 (5-15) Blood Urea Nitrogen 10 mg/dL (9-23) Creatinine 0.75 mg/dL (0.550-1.02) Glomerular Filtration Rate Calc 87 mL/min (>90) BUN/Creatinine Ratio 13.3 (10.0-20.0) Serum Glucose 113 mg/dL (74-106) Calcium Level 8.9 mg/dL (8.7-10.4) Magnesium Level 2.2 mg/dL (1.6-2.6) White Blood Count 7.3 10^3/uL (4.4-10.8) Red Blood Count 4.84 10^6/uL (4.0-5.20) Hemoglobin 14.5 g/dL (12.2-16.2) Hematocrit 41.7 % (36.0-46.0) Mean Corpuscular Volume 86.2 fL (80.0-100.0) Mean Corpuscular Hemoglobin 30.1 pg (28.0-32.0) Mean Corpuscular Hemoglobin Concent 34.9 g/dL (32.0-36.0) Red Cell Distribution Width 13.3 % (11.8-14.3) Platelet Count 203 10^3/uL (140-450) Mean Platelet Volume 8.8 fL (6.9-10.8) Neutrophils (%) (Auto) 71.2 % (37.0-80.0) Lymphocytes (%) (Auto) 16.2 % (10.0-50.0) Monocytes (%) (Auto) 10.7 % (0.0-12.0) Eosinophils (%) (Auto) 1.4 % (0.0-7.0) Basophils (%) (Auto) 0.5 % (0.0-2.0) Neutrophils # (Auto) 5.2 10 ^3/uL (1.6-8.6) Lymphocytes # (Auto) 1.2 10 ^3/uL (0.4-5.4) Monocytes # (Auto) 0.8 10 ^3/uL (0-1.3) Eosinophils # (Auto) 0.1 10 ^3/uL (0-0.8) Basophils # (Auto) 0 10 ^3/uL (0-0.2) Nucleated Red Blood Cells 0.1 % Urine Color Colorless (Yellow) Urine Clarity Clear (Clear) Urine pH 7.0 (5.0-9.0) Urine Specific [place] 1.011 (1.001-1.035) Urine Protein Negative (Negative) Urine Ketones Negative (Negative) Urine Blood Negative /uL (Negative) Urine Nitrite Negative (Negative) Urine Bilirubin Negative (Negative) Urine Urobilinogen Normal mg/dL (Negative) Urine Leukocyte Esterase Negative /uL (Negative) Urine RBC None seen /hpf (0 - 4) Urine Microscopic WBC < 1 /HPF (0-5) Urine Squamous Epithelial Cells None seen /hpf (<5) Urine Bacteria None seen /hpf (None Seen) Urine Glucose Normal mg/dL (Normal) Urine Opiates Screen Neg (NEGATIVE) Urine Fentanyl Screen Neg (NEGATIVE) Urine Barbiturates Screen Neg (NEGATIVE) Urine Phencyclidine Screen Neg (NEGATIVE) Urine Amphetamines Screen Neg (NEGATIVE) Urine Benzodiazepines Screen Neg (NEGATIVE) Urine Cocaine Screen Neg (NEGATIVE) Urine Cannabinoids Screen Neg (NEGATIVE) Phosphorus Level 2.8 mg/dL (2.4-5.1) Troponin I High Sensitivity 14 ng/L (</=34) C-Reactive Protein High Sensitivity 0.35 mg/dL (<1.0) Triglycerides Level 133 mg/dL (< 150) Cholesterol Level 166 mg/dL (< 200) LDL Cholesterol 120 mg/dL (< 100) HDL Cholesterol 41 mg/dL (40-59) Lipase 79 U/L (12-53) Thyroid Stimulating Hormone (TSH) 3.72 uIU/mL (0.55-4.78) Test 08/09/25 00:27 Prothrombin Time 10.2 sec (9.3-11.8) Prothrombin Time INR 0.96 (0.9-1.15) Activated Partial Thromboplast Time 25.6 SEC (24.5-34.5) D-Dimer, Quantitative 0.33 mg/L FEU (0.0-0.49) Hemoglobin A1c 6.1 % A1C (<5.7) Total Bilirubin 0.4 mg/dL (0.2-1.0) Aspartate Amino Transferase (AST) 28 U/L (13-40) Alanine Aminotransferase (ALT) 39 U/L (7-40) Alkaline Phosphatase 106 U/L (46-116) B-Type Natriuretic Peptide 64.98 pg/mL (0-100) Total Protein 7.6 g/dL (5.7-8.2) Albumin 4.6 g/dL (3.2-4.8) Vitamin B12 Level 849 pg/mL (211-911) Vitamin D 25-Hydroxy 49.7 ng/mL (30.0-100) Other Laboratory Tests 08/10/25 05:13 08/09/25 08:04 Brief Hx & Hospital Course: This is a 70-year-old female with past medical history of hyperlipidemia, hypertension, presented to the ER with chief complain palpitation. As per patient she checked her carotid pulse and found out in her Apple watch as she has atrial fibrillation, patient was also feeling pressure-like chest pain especially in the back of the neck. Patient also reported her blood pressure was elevated in 190s at home. Patient denied any fever, cough, recent diarrhea. Initial EKG revealed atrial fibrillation with rapid ventricular rate. Patient was given diltiazem at the ER and EKG reverted to sinus rhythm. Hemoglobin A1c 6.1, LDL 120. UDS negative. D-dimer negative. Chest x-ray negative. Hospital course patient was treated with Lovenox 80 mg subcutaneously b.i.d. and metoprolol 12.5 mg p.o. b.i.d.. Echo 2D revealedMild left atrial enlargement. Mild aortic root dilatation. Concentric LVH. Valves appear to be structurally normal. Left ventricular function is preserved at 60% with normal RV function. [id number]-[id number] TR. No pericardial effusion masses or vegetations. Cardiology recommended flecainide 100 mg p.o. daily and metoprolol 12.5 mg p.o. b.i.d.. Eliquis 5 mg p.o. b.i.d.. Patient is to follow up with the freezer operator as per schedule. Patient was also advised to follow up with the discharge clinic in 1 week and also to follow up with the primary care physician in 1-2 weeks. Patient's meds were sent to the pharmacy electronically. Patient was on sinus rhythm and hemodynamically stable on discharge Operations or Procedures [place] [address] Ph: [phone] DIAGNOSTIC IMAGING Diagnostic Imaging Report : [id number] Signed PATIENT: KINSEY GONZALEZ ACCT: [id number] UNIT: [id number] : 1955 LOC: ER ROOM / BED: / AGE / SEX: 70 / F ADM STATUS: REG ER SERVICE ORDERING PHYSICIAN: DAVID MCKEON PROCEDURE(s): CXR1 - CHEST XRAY 1 VIEW REASON: Palpitations ORDER NUMBER(s): [id number], ACCESSION NUMBER(s): [id number] CHEST RADIOGRAPH Indication: Palpitations Technique: 1 view Comparison: None FINDINGS: Lines and Tubes: External leads. Lungs/Pleura: No focal consolidation, pleural effusion or pneumothorax. Cardiomediastinum: Unremarkable. Other: No acute osseous abnormality. IMPRESSION: 1. No acute cardiopulmonary abnormality. ATED BY: LASHAWN STEVENS MD DICTATED DATE/TIME: 08/09/2550 SIGNED BY: LASHAWN STEVENS MD SIGNED DATE/TIME: 08/09/2550 CC: [place] [address] Ph: [phone] DIAGNOSTIC IMAGING Diagnostic Imaging Report : [id number] Signed PATIENT: KINSEY GONZALEZ ACCT: [id number] UNIT: [id number] : 1955 LOC: [facility] ROOM / BED: 0244ADST / 4 AGE / SEX: 70 / F ADM STATUS: ADM IN SERVICE 8 ORDERING PHYSICIAN: NANO PEPPER PROCEDURE(s): ECIDC - ECHO 2D MODE CARDIAC DOP REASON: New onset AFib ORDER NUMBER(s): [id number], ACCESSION NUMBER(s): [id number] APPROVED REPORT EXAM: Two-dimensional and M-mode echocardiogram with Doppler and color Doppler. Blood Pressure: 142/73 mmHg INDICATION New onset AFIB RISK FACTORS Height: 66, Weight: 185 DIMENSIONS LVDd 4.4 (3.8-5.7cm) LA (2D) (1.9-4.0cm) Aortic Root 3.5 (2.0- 3.7cm) LVDs 2.9 (2.5-4.0cm) LA (MM) (1.9-4.0cm) Aortic Cusp Exc 2.0 (1.5- 2.0cm) EF (%) 63.0 (55-70%) Rt. Atrium (1.9-4.0cm) Asc. Aorta cm IVSd 1.4 (0.7-1.1cm) RV (D) (1.8-2.4cm) PWd 1.2 (0.7-1.1cm) Mitral Valve Mitral Mitral Stenosis E wave 0.70m/s MV Mean GR. mmHg A wave 0.88m/s MV Peak GR. mmHg E/A ratio 0.8 2D MVA cm2 DECEL Time 309ms PRESS 1/2 Time 85ms IVRT ms Dop MVA 2.59cm2 Aortic Valve Aortic Valve Aortic Stenosis V1 1.43m/s AO Mean GR. 6mmHg V2 1.60m/s AO Peak GR. 10mmHg LVOT Diameter 1.7 (1.8-2.4cm) Doppler KENDRA 2.03cm2 Pulmonic Valve V2 0.97m/s Conclusion Technically good study. Sinus rhythm. Mild left atrial enlargement. Mild aortic root dilatation. Concentric LVH. Valves appear to be structurally normal. Left ventricular function is preserved at 60% with normal RV function. [id number] TR. No pericardial effusion masses or vegetations. SIGNED BY: FELIBERTO DEL VALLE Sr., MD SIGNED DATE/TIME: 08/10/25 7130 CC: Condition at Discharge: Stable Final Diagnosis/Problems List #New onset Atrial fibrillation with RVR #Hypertension #Hyperlipidemia # prediabetes Discharge Disposition: Home Discharge Instruct/Medications Diet: Cardiac 2g Na,low cholest Activity: No Restrictions, As Tolerated Follow Up/Referral: Please follow up at the discharge in 1 week Please follow up with the primary care physician in 1-2 weeks Please follow up with the freezer operator in 1-2 weeks Medications: Flecainide 100 mg p.o. daily Metoprolol 12.5 mg p.o. b.i.d. Eliquis 5 mg p.o. b.i.d. Please resume home medication atorvastatin as before Scheduled Apixaban Base (Eliquis), 5 MG PO BID Atorvastatin Calcium (Atorvastatin Calcium), 1 TAB PO DAILY, (Reported) Flecainide Acetate (Flecainide Acetate), 100 MG PO DAILY Lisinopril (Lisinopril), 1 TAB PO DAILY, (Reported) Metoprolol Tartrate (Metoprolol Tartrate), 0.5 TAB PO BID Discharge Statement: "Patient was advised to return to the ER or call 911 if any headaches, dizziness, shortness of breath, chest pain, abdominal pain, bleeding, fevers, or worsening of medical condition. Patient was counseled about treatment plan, medications, possible side effects, patientverbalized understanding. All questions were answered to the best of my ability. This discharge took greater then 30 minutes in planning, reviewing documentation, counseling the patient, and discussing with other team members." ASSESSMENT ASSESSMENT Assessment Date of Service: Aug 10, 2025 Billing Provider: WILLIAN AHN MD Common Visit Codes: 08968-GTO/OBS DISCH DAY >30min JOAN BHAT Aug 10, 2025 16:15 WILLIAN AHN MD Aug 10, 2025 19:26
--- NOTE | 2025-08-10 16:37 | DVHSR ---
APPROVED REPORT EXAM: Two-dimensional and M-mode echocardiogram with Doppler and color Doppler. Blood Pressure: 142/73 mmHg INDICATION New onset AFIB RISK FACTORS Height: 66, Weight: 185 DIMENSIONS LVDd4.4 (3.8-5.7cm)LA (2D) (1.9-4.0cm)Aortic Root3.5 (2.0-3.7cm) LVDs2.9 (2.5-4.0cm)LA (MM) (1.9-4.0cm)Aortic Cusp Exc2.0 (1.5-2.0cm) EF (%) 63.0 (55-70%)Rt. Atrium (1.9-4.0cm)Asc. Aorta cm IVSd1.4 (0.7-1.1cm)RV (D) (1.8-2.4cm) PWd1.2 (0.7-1.1cm) Mitral Valve MitralMitral Stenosis E wave0.70m/sMV Mean GR.mmHg A wave0.88m/sMV Peak GR.mmHg E/A ratio0.82D MVAcm2 DECEL [id number] 1/2 [id number] IVRTmsDop MVA2.59cm2 Aortic Valve Aortic ValveAortic Stenosis V11.43m/Abigail Mean GR.6mmHg V21.60m/Abigail Peak GR.10mmHg LVOT Diameter1.7 (1.8-2.4cm)Doppler AVA2.03cm2 Pulmonic Valve V20.97m/s Conclusion Technically good study. Sinus rhythm. Mild left atrial enlargement. Mild aortic root dilatation. Concentric LVH. Valves appear to be structurally normal. Left ventricular function is preserved at 60% with normal RV function. Hbsm-ax-tdezcogt TR. No pericardial effusion masses or vegetations.
--- NOTE | 2025-08-10 17:23 | DVHPN2 ---
Consult Progress Note Subjective Other Systems: Patient in normal sinus rhythm at time of assessment Objective vital signs Vital Sign Date Time Temp Pulse Resp B/P (MAP) Pulse Ox O2 Delivery O2 Flow Rate FiO2 08/10/25 17:14 36.5 62 08/10/25 17:04 18 139/98 (112) 95 08/10/25 08:29 Room Air* 0 21 Total Intake and Output 08/09/25 08/09/25 08/10/25 15:00 23:00 07:00 Intake Total 600 ml 425 ml Balance 600 ml 425 ml medications Current Medications Medications Dose Ordered Sig/Sharron Route Start Time Stop Time Status Last Admin Dose Admin Ondansetron HCl 4 mg Q4HP PRN IV 08/09/25 02:30 Morphine Sulfate 2 mg Q4HPRN PRN IV 08/09/25 02:30 Atorvastatin Calcium 10 mg HS PO 08/09/25 22:00 08/09/25 21:25 10 MG Enoxaparin Sodium 80 mg Q12HR SC 08/09/25 02:30 08/10/25 09:18 80 MG Pantoprazole Sodium 40 mg DAILY@0600 PO 08/09/25 06:00 08/10/25 06:10 40 MG Metoprolol Tartrate 12.5 mg BID PO 08/09/25 22:00 08/10/25 09:16 12.5 MG Examination: GENERAL:Normal, LUNGS:Normal, CVS:Normal, NEURO:Normal laboratory and microbiology Laboratory Tests 08/10/25 05:13 08/09/25 08:04 Test 08/10/25 05:13 Range/Units Serum Glucose 113 H 74-106 mg/dL Problem List/Assessment/Plan Problem List/Assessment/Plan Atrial fibrillation with rapid ventricular response, new onset, now normal sinus rhythm Hypertension Dyslipidemia Prediabetes Plan/Recommendations (Dr. Baeza): * Transthoracic echocardiogram reveals EF 60% * [id number] VASc score: 3 points, HAS-BLED: 1 point * Continue therapeutic Lovenox, transition to DOAC prior to discharge * Beta-kailash for rate control * Initiate flecainide antiarrhythmic therapy * Monitor and replete electrolytes as needed, keep potassium greater than four and magnesium greater than two * Close cardiac surveillance There is no further inpatient cardiac workup indicated at this time. The patient has been scheduled to follow up with Cardiology in the outpatient setting with on 08/30/25 at 0915am. Thank you for allowing us to care for this patient. Please call with any questions or concerns. This medical document was created using an electronic medical record system with voice recognition software and computerized dictation system. Although this document has been carefully reviewed, there might still be some phonetic and typographical errors. Occasional wrong-word or ``sound-alike substitutions may have occurred due to the inherent limitations of voice recognition software. These areas are purely typographical due to imperfections of the software programs and do not reflect any compromise in the patient's medical care. Please read the chart carefully and recognize, using context, where these substitutions have occurred. Plan discussed with: Patient Date of Service: Aug 10, 2025 Billing Provider: ELOISA GARCIA Common Visit Codes: [id number] INP/OBS CARE(HIGH) ELOISA GARCIA Aug 10, 2025 17:23
[2025-08-10] MEDS ORDERED: APIX5TAB PO (17:28)
[2025-08-10] MEDS ORDERED: FLEC100T PO ×2 (17:28→17:32)
[2025-08-10] MEDS ORDERED: METO25TA5 PO (17:28)
--- NOTE | 2025-08-16 09:03 | ECG ---
[facility] Test Date: 2025-08-09 Test Time: 01:18:29 Pat Name: KINSEY GONZALEZ Department: [facility] ED Room: [address] [place] [address] 4 Gender: F Lead Php Developer: TITO : 1955 Requested By: GEORGIA KAPLAN Order Number: [id number] Reading MD: Measurements Intervals [place] Rate: 74 P: 0 UT: 0 QRS: 51 QRSD: 83 T: 70 QT: 409 QTc: 454 Interpretive Statements Atrial fibrillation Probable anteroseptal infarct, old Please click the below link to view image of tracing.
--- NOTE | 2025-08-16 09:03 | ECG ---
[facility] Test Date: 2025-08-09 Test Time: 00:21:36 Pat Name: KINSEY GONZALEZ Department: ED Room: [address] [place] [address] 4 Gender: F Road Conductor: BONIFACIO : 1955 Requested By: WILLIAN AHN Order Number: [id number] Reading MD: Measurements Intervals [place] Rate: 136 P: 0 [place]: 0 QRS: 58 QRSD: 89 T: 63 QT: 329 QTc: 495 Interpretive Statements Atrial fibrillation Probable anteroseptal infarct, old ST depression, consider ischemia, diffuse lds Please click the below link to view image of tracing.
== END 2025-08-10 18:15 | disposition home or self-care (01) | DRG 303 ==
LOC: ER 00:11 → OVERFLOW 02:29 → TELE-EAST 15:21
PROVIDERS: ADMIT Student in an Organized Health Care Education/Training Program; ATTEND Student in an Organized Health Care Education/Training Program
DX: I25.10 Atherosclerotic heart disease of native coronary artery without angina pectoris (principal); I48.91 Unspecified atrial fibrillation; E78.5 Hyperlipidemia, unspecified; I10 Essential (primary) hypertension; R73.03 Prediabetes; Z79.899 Other long term (current) drug therapy
CPT/HCPCS: 36415; 71045; 80048; 80053; 80061; 80307; 81001; 82306; 82607; 83036; 83690; 83735; 83880; 84100; 84443; 84484; 85025; 85379; 85610; 85730; 86141; 93005; 93306; 99291; G0378